=== PATIENT | male | born 1950 | race Caucasian/White ===

== ENCOUNTER 2021-04-19 08:56 | Observation (INO) | payer MEDICARE ==
[~2021-04-19] VITALS: Ht 182.9 cm; Wt 64.9 kg
[~2021-04-19 08:56] MED LIST: PERCOCET 5/325 T1 EA PO; VALTREX1000 MG PO
[2021-04-19 09:51] LABS: HEMOGLOBIN 15.8 gm/dl (14.0-17.5); RED BLOOD COUNT 5.29 M/UL (4.20-5.50); WHITE BLOOD COUNT 9.8 K/UL (4.5-11.0)
[2021-04-19 10:14] LABS: BUN/CREATININE RATIO 17 (0-10)
[2021-04-19] MEDS ORDERED: SERTRALINE HCL50 MG PO (14:51)
[2021-04-19] MEDS ORDERED: AMLODIPINE-BEN1 EACH PO (14:51)
[2021-04-19] MEDS ORDERED: ASPIRIN325 MG PO (14:52)
[2021-04-19] MEDS ORDERED: MULTIVITAMIN1 EACH PO (14:52)
[2021-04-19] MEDS ORDERED: CELECOXIB200 MG PO (14:52)
[2021-04-20 02:16] LABS: HEMOGLOBIN 14.9 gm/dl (14.0-17.5); RED BLOOD COUNT 5.01 M/UL (4.20-5.50); WHITE BLOOD COUNT 12.1 K/UL (4.5-11.0)
[2021-04-20 02:44] LABS: BUN/CREATININE RATIO 19 (0-10)
[2021-04-21] MEDS ORDERED: ISOSORBIDE MONO30 MG PO (16:40)
[2021-04-21] MEDS ORDERED: ASPIRIN325 MG PO (16:40)
[2021-04-21] MEDS ORDERED: ATORVASTATIN CA40 MG PO (16:43)
== END 2021-04-21 18:40 | disposition home or self-care (01) ==
LOC: ER1 08:56 → CDU 14:15 → M/S 14:15
PROVIDERS: Physician Assistant; Physician Assistant Medical; ADMIT Internal Medicine
DX: R07.89 Other chest pain (principal); R10.12 Left upper quadrant pain; R10.11 Right upper quadrant pain; I99.8 Other disorder of circulatory system; I25.10 Atherosclerotic heart disease of native coronary artery without angina pectoris; K21.9 Gastro-esophageal reflux disease without esophagitis; I10 Essential (primary) hypertension; F32.A Depression, unspecified; M19.90 Unspecified osteoarthritis, unspecified site; Z20.822 Contact with and (suspected) exposure to COVID-19; Z85.46 Personal history of malignant neoplasm of prostate; Z88.0 Allergy status to penicillin; Z79.1 Long term (current) use of non-steroidal anti-inflammatories (NSAID); Z79.899 Other long term (current) drug therapy
CPT/HCPCS: ECHO; 36415; 71045; 78452; 80048; 80053; 82550; 82553; 83690; 83735; 83874; 84484; 85025; 85027; 93005; 93017; 93306; 99285; A9502; G0378; J0360; J2270; J2785; U0002

== ENCOUNTER → 2021-10-10 | Outpatient (CLI) | payer MEDICARE ==
[~2021-10-10] MED LIST changes: +AMLODIPINE-BEN1 EACH PO; +ASPIRIN325 MG PO; +ATORVASTATIN CA40 MG PO; +CELECOXIB200 MG PO; +ISOSORBIDE MONO30 MG PO; +MULTIVITAMIN1 EACH PO; +SERTRALINE HCL50 MG PO
[2021-10-10 11:01] LABS: HEMOGLOBIN 13.3 gm/dl (14.0-17.5); RED BLOOD COUNT 4.52 M/UL (4.20-5.50); WHITE BLOOD COUNT 6.1 K/UL (4.5-11.0)
[2021-10-11 16:14] LABS: LYME TOTAL ANTIBODY EIA Negative (Negative)
== END ==
LOC: LAB 10:43
PROVIDERS: Family Medicine
DX: D69.6 Thrombocytopenia, unspecified (principal); D72.819 Decreased white blood cell count, unspecified; R53.83 Other fatigue
CPT/HCPCS: 36415; 85025; 86618